=== PATIENT | female | born 1995 ===

== ENCOUNTER 2016-04-12 07:12 | Inpatient (IN) | payer MEDICAID, OTHER ==
[2016-04-12] VITALS (8 sets, daily range): BP systolic 94–129; RESP 18–20; TEMP 98.5–98.9; BMI 30.8
[~2016-04-12] VITALS: Ht 160 cm; Wt 78.9 kg
[2016-04-12] MEDS: LACT RINGERS 1,000 ML IV SCH ×3 (07:48→12:30)
[2016-04-12] MEDS ORDERED: CEFAZOLIN (LD/OB) 100 ML IV PRN (08:50)
[2016-04-12] MEDS ORDERED: PROMETHAZINE 25 MG/ML VIAL IV PRN (08:50)
[2016-04-12] MEDS ORDERED: FAMOTIDINE 20 MG TAB PO PRN (08:50)
[2016-04-12] MEDS ORDERED: ACETAMINOPHEN 325 MG TAB PO PRN (08:50)
[2016-04-12] MEDS ORDERED: OXYTOCIN 15 UNITS/250 ML NS 250 ML IV SCH ×3 (08:50→19:30)
[2016-04-12] MEDS ORDERED: FAMOTIDINE 20 MG INJ IV PRN (08:50)
[2016-04-12] MEDS ORDERED: TERBUTALINE 1 MG/ML VIAL SUBQ PRN (08:50)
[2016-04-12] MEDS ORDERED: METOCLOPRAMIDE 10 MG/2 ML VIAL IV PUSH PRN (08:50)
[2016-04-12] MEDS ORDERED: LIDOCAINE 1% 30 ML PF INFILTRATE ONE (08:50)
[2016-04-12] MEDS ORDERED: ONDANSETRON 4 MG VIAL IV PRN (08:50)
[2016-04-12] MEDS ORDERED: ALU/MAG/SIM 30 ML UDC PO PRN (08:50)
[2016-04-12] MEDS ORDERED: LIDOCAINE 2% 5 ML IV ONE (09:48)
[2016-04-12] MEDS ORDERED: ROPIV/FENT 0.2%-2MCG/ML 100 ML EPIDURAL ONE (11:49)
[2016-04-12] MEDS ORDERED: FENTANYL 100 MCG/2 ML AMP ONE (11:49)
[2016-04-12] MEDS ORDERED: FENTANYL 100 MCG/2 ML AMP EPIDURAL ONE (14:40)
[2016-04-12] MEDS ORDERED: LACT RINGERS 500 ML IV PRN (14:40)
[2016-04-12] MEDS ORDERED: LACT RINGERS 500 ML IV ONE (14:40)
[2016-04-12] MEDS ORDERED: SODIUM CHLORIDE 0.9% 500 ML IV PRN (14:40)
[2016-04-12] MEDS ORDERED: ROPIV/FENT 0.2%-2MCG/ML 100 ML EPIDURAL SCH (14:40)
[2016-04-12] MEDS ORDERED: BISACODYL 10 MG SUPP RECTAL PRN (19:30)
[2016-04-12] MEDS ORDERED: SALINE FLUSH 10 ML FLUSH PRN (19:30)
[2016-04-12] MEDS: KETOROLAC 10 MG TAB PO SCH (19:51)
[2016-04-12] MEDS: SALINE FLUSH 10 ML FLUSH SCH (20:00)
[2016-04-12] MEDS ORDERED: **ONLY ANESTEHSIA MAY ORDER OPIATES WHILE ON EPIDURAL XX SCH (20:00)
[2016-04-13 01:50] VITALS: BP_SYST 111; RESP 16; TEMP 98.9
[2016-04-13 05:22] VITALS: BP_SYST 119; RESP 16; TEMP 99
[2016-04-13] MEDS ORDERED: SODIUM CHLORIDE 0.9% FLUSH BAG 500 ML IV SCH (06:00)
[2016-04-13] MEDS: SALINE FLUSH 10 ML FLUSH SCH (08:24)
[2016-04-13] MEDS: KETOROLAC 10 MG TAB PO SCH ×3 (08:24→22:04)
[2016-04-13] MEDS: DOCUSATE SOD 100 MG CAP PO SCH (08:24)
[2016-04-13 09:55] VITALS: BP_SYST 106; RESP 16; TEMP 98
[2016-04-13] MEDS ORDERED: ASTRINGENT MED PADS 40'S TOPICAL PRN (12:45)
[2016-04-13 13:50] VITALS: BP_SYST 133; RESP 16; TEMP 98
[2016-04-13 17:21] VITALS: BP_SYST 111; RESP 18; TEMP 97.4
[2016-04-14 05:11] VITALS: BP_SYST 113; RESP 16; TEMP 98.1
[2016-04-14] MEDS: DOCUSATE SOD 100 MG CAP PO SCH (08:21)
[2016-04-14] MEDS: KETOROLAC 10 MG TAB PO SCH (08:22)
[2016-04-14 09:07] VITALS: BP_SYST 125; TEMP 98.1
[2016-04-14 09:08] VITALS: RESP 20
[2016-04-14 10:35] VITALS: BP_SYST 125; RESP 20; TEMP 98.1
[2016-04-14 13:41] VITALS: BP_SYST 128; TEMP 98
== END 2016-04-14 13:42 | disposition home or self-care (01) | DRG 775 ==
LOC: LD 07:12 → OB 21:50
PROVIDERS: ADMIT Specialist; ATTEND Specialist
PROC: 10E0XZZ Delivery of Products of Conception, External Approach (ICD-10-PCS; principal; 2016-04-12)
PROC: 10907ZC Drainage of Amniotic Fluid, Therapeutic from Products of Conception, Via Natural or Artificial Opening (ICD-10-PCS; 2016-04-12)
CPT/HCPCS: 80053; 82803; 84550; 85025; 86850; 86870; 86900; 86901; 86970